=== PATIENT | female | born 1950 | race Asian ===

== ENCOUNTER 2020-05-31 09:56 | Day surgery (SDC) | payer MEDICARE, OTHER ==
[~2020-05-31 09:56] MED LIST: ACETAMINOPHEN 325 MG TABLET PO PRN; CEFAZOLIN 2 GM/D5W RTU 2 GM/50 ML RTUPB IV PRN; CELECOXIB 200 MG CAPSULE PO PRN; FENTANYL CITRATE INJ/PF 100 MCG/2 ML AMPUL ONE; GABAPENTIN 100 MG CAPSULE PO PRN; MIDAZOLAM 2 MG/2 ML INJ ONE; ONDANSETRON HCL INJ/PF 4 MG/2 ML SDV IV PRN; OXYCODONE HCL SR 10 MG TABLET PO PRN; PROPOFOL INJ 200 MG/20 ML VIAL IV ONE; SCOPOLAMINE HYDROBROMIDE 1.5 MG PATCH.TD72 TD PRN; TRAMADOL HCL 50 MG TABLET PO PRN; TRANEXAMIC ACID INJ/PF 1,000 MG/10 ML SDV IV PRN; TRANEXAMIC ACID INJ/PF 1,000 MG/10 ML SDV ONE; VANCOMYCIN HCL 1,000 MG in DEXTROSE 5%-WATER 250 ML IV PRN
[2020-05-31] MEDS ORDERED: SCOPOLAMINE HYDROBROMIDE 1.5 MG PATCH.TD72 ONE (10:34)
[2020-05-31] MEDS ORDERED: OXYCODONE HCL SR 10 MG TABLET PO ONE (10:34)
[2020-05-31] MEDS ORDERED: CELECOXIB 200 MG CAPSULE ONE (10:34)
[2020-05-31] MEDS ORDERED: CEFAZOLIN 2 GM/D5W RTU 2 GM/50 ML RTUPB IV ONE (10:34)
[2020-05-31] MEDS ORDERED: ACETAMINOPHEN 325 MG TABLET ONE (10:34)
[2020-05-31] MEDS ORDERED: TRAMADOL HCL 50 MG TABLET ONE (10:34)
[2020-05-31] MEDS ORDERED: GABAPENTIN 100 MG CAPSULE ONE (10:35)
[2020-05-31 11:17] LABS: HEMATOCRIT 37.4 % (36.0-47.0); HEMOGLOBIN 13.3 g/dL (12.0-15.5); MEAN CORPUSCULAR HGB CONC 35.7 g/dL (32.0-36.0); MEAN CORPUSCULAR VOLUME 95 fl (80-97); PLATELET COUNT 276 10^3/uL (150-450); RED BLOOD COUNT 3.93 10^6/uL (3.72-5.28); RED CELL DISTRIBUTION WIDTH 12.6 % (11.5-14.0)
[2020-05-31 11:38] LABS: ANION GAP 6 (5-19); BLOOD UREA NITROGEN 16 mg/dL (7-20); CALCIUM 9.9 mg/dL (8.4-10.2); CARBON DIOXIDE 25 mmol/L (22-30); CHLORIDE 107 mmol/L (98-107); GLUCOSE 96 mg/dL (75-110); POTASSIUM 4.1 mmol/L (3.6-5.0)
[2020-05-31] MEDS ORDERED: BUPIVACAINE HCL 0.25 % INJ/PF (2.5 MG/1 ML) 30 ML VIAL ONE ×2 (13:12→13:18)
[2020-05-31] MEDS ORDERED: LIDOCAINE 1% INJ-PF (10 MG/ML) 30 ML SDV ONE (13:18)
[2020-05-31] MEDS ORDERED: VANCOMYCIN HCL INJ 1000 MG VIAL ONE (13:18)
[2020-05-31] MEDS ORDERED: KETOROLAC TROMETHAMINE INJ/PF 30 MG/1 ML SDV ONE (13:18)
[2020-05-31] MEDS ORDERED: MEPERIDINE HCL/PF INJ 25 MG/1 ML DISP.SYRIN IV PRN (14:11)
[2020-05-31] MEDS ORDERED: MORPHINE SULFATE 10 MG/ML INJ IV PRN ×2 (14:11→17:30)
[2020-05-31] MEDS ORDERED: ONDANSETRON HCL INJ/PF 4 MG/2 ML SDV IV PRN (14:11)
[2020-05-31] MEDS ORDERED: FENTANYL CITRATE INJ/PF 100 MCG/2 ML AMPUL IV PRN ×3 (14:11)
[2020-05-31] MEDS ORDERED: DIPHENHYDRAMINE HCL 50 MG/ML VIAL IV PRN (14:11)
[2020-05-31] MEDS ORDERED: EPHEDRINE SULFATE INJ 50 MG/1 ML AMPULE ONE (14:40)
--- NOTE | 2020-05-31 15:31 | Operative Report ---
Operative Report DATE OF SURGERY: 05/31/20 PREOPERATIVE DIAGNOSIS: Left hip primary osteoarthritis POSTOPERATIVE DIAGNOSIS: Left hip primary osteoarthritis OPERATION: Left total hip arthroplasty SURGEON: LISANDRO BECKER JR ANESTHESIA: Spinal COMPLICATIONS: None ESTIMATED BLOOD LOSS: 100 cc PROCEDURE: Implants: Noah Accolade 2 size 2 femoral stem with lateral offset, a Logan Trident 2 size 46 mm cup, and a standard liner, a standard neck length 36 mm ceramic head BRIEF HISTORY: 70 year old female with severe degenerative arthritis of left hip, which has failed conservative treatment and has elected for a total hip arthroplasty. Risks include but are not limited to bleeding, infection, anesthesia, , injury to nerve or vessel, pain, scar, leg length inequality, dislocation, future surgery, and blood clots. Patient read through the pre-op counseling form and signed and consented for surgery on their left hip. OPERATIVE PROCEDURE: Patient was brought to the operating room on and underwent spinal anesthesia. 2 grams of Ancef and 1 g of vancomycin was given. After proper anesthesia was obtained, patient was positioned, padded, prepped, and draped in the usual sterile fashion on the operating room table. Appropriate time out was performed. An anterior approach to the hip was undertaken with meticulous hemostasis through the deep interval. A capsulectomy was performed followed by exposure of the femoral neck. The femoral neck was cut in line with the femoral broach and the femoral head was removed. The acetabulum was then exposed with three retractors in an atraumatic fashion. Soft tissue and osteophytes were removed. Medialization reaming was performed followed by anatomic reaming up to accept a 46 mm acetabulum. Wound was irrigated with dilute betadyne solution and the 46 mm acetabulum was impacted into correct position and stability checked by manipulating the impaction handle which rocked the pelvis. A standard liner was impacted into the shell with good stability. Potential impinging osteophytes were removed. Attention was then directed toward the femur, which was exposed with two retract ors in an atraumatic fashion. A bone hook was placed to carefully perform releases along the superior capsule until the femur was safely delivered through the wound. A preparing box tender was utilized followed by lateralization rasping and then broaching up to accept a 2 femur. With a lateral offset neck and a standard head, stability was good in flexion and extension with slightly long on the left (a return to her preoperative baseline) leg lengths. The real lateral offset femur was impacted into a copiously irrigated femoral canal. A 36 mm standard head was impacted on a clean dry femoral taper. The hip was irrigated and reduced, further irrigation with antibiotic solution, betadine solution, then antibiotic solution. Bleeders were coagulated with bovie cautery. The fascia was then closed with number 2 Stratofix; the subcutaneous tissue closed with interrupted inverted 2-0 monocryl then running 3-0 monocryl subcuticular. A silver dressing was then applied. All needle sponge and instrument counts were correct. Patient was awakened from sedation anesthesia and taken to recovery room in good condition. Thank you, Lisandro Becker, DO
--- NOTE | 2020-05-31 16:05 | RADIOLOGY REPORT (SQ) ---
EXAM DESCRIPTION: NO CHG FLUORO; HIP IN OPERATING RM IMAGES COMPLETED DATE/TIME: 05/31/2020 3:26 pm REASON FOR STUDY: LEFT HIP TOTAL ARTHROPLASTY ASSISTED WITH FLUORO IN OR COMPARISON: None. FLUOROSCOPY TIME: No measurable fluoro time 2 Images saved to PACS LIMITATIONS: None. PROCEDURE: Left hip arthroplasty FINDINGS: Images from fluoro document the procedure. IMPRESSION: Left hip arthroplasty. Refer to operative note for further information. COMMENT: PQRS 6045F: Fluoroscopy time of the procedure is documented in the report. TECHNICAL DOCUMENTATION: JOB ID: [id number] 2010 [email or web address]- All Rights Reserved Reading location - IP/workstation name: [email or web address]
--- NOTE | 2020-05-31 16:05 | RADIOLOGY REPORT (SQ) ---
EXAM DESCRIPTION: NO CHG FLUORO; HIP IN OPERATING RM IMAGES COMPLETED DATE/TIME: 05/31/2020 3:26 pm REASON FOR STUDY: LEFT HIP TOTAL ARTHROPLASTY ASSISTED WITH FLUORO IN OR COMPARISON: None. FLUOROSCOPY TIME: No measurable fluoro time 2 Images saved to PACS LIMITATIONS: None. PROCEDURE: Left hip arthroplasty FINDINGS: Images from fluoro document the procedure. IMPRESSION: Left hip arthroplasty. Refer to operative note for further information. COMMENT: PQRS 6045F: Fluoroscopy time of the procedure is documented in the report. TECHNICAL DOCUMENTATION: JOB ID: [id number] 2010 [employer]- All Rights Reserved Reading location - IP/workstation name: [email or web address]
--- NOTE | 2020-05-31 16:14 | RADIOLOGY REPORT (SQ) ---
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 NUMBER OF VIEWS: Two views. TECHNIQUE: AP pelvis and additional frog-leg view of the left hip. LIMITATIONS: None. FINDINGS: MINERALIZATION: Normal. LEFT HIP: Left hip arthroplasty. Good position. RIGHT HIP: No fracture or dislocation. No worrisome bone lesions. PUBIS AND ISCHIUM: No fracture. PELVIS: No fracture. SACRUM: No fracture or dislocation. No worrisome bone lesions. LOWER LUMBAR SPINE: No fracture or dislocation. No worrisome bone lesions. No significant disc disea se. SOFT TISSUES: No findings. OTHER: No other significant finding. IMPRESSION: Left hip arthroplasty. Refer to operative note for further information. TECHNICAL DOCUMENTATION: JOB ID: [id number] 2010 [employer]- All Rights Reserved Reading location - IP/workstation name: [email or web address]
[2020-05-31] MEDS ORDERED: OXYCODONE HCL IR 5 MG TABLET PO PRN ×2 (17:30)
[2020-05-31] MEDS ORDERED: TRAMADOL HCL 50 MG TABLET PO PRN (17:31)
[2020-05-31] MEDS ORDERED: DIPHENHYDRAMINE HCL 25 MG CAPSULE PO PRN (17:33)
[2020-05-31] MEDS ORDERED: ZOLPIDEM TARTRATE 5 MG TABLET PO PRN (17:33)
[2020-05-31] MEDS ORDERED: DOCUSATE SODIUM 100 MG CAPSULE PO PRN (17:34)
[2020-05-31] MEDS ORDERED: ONDANSETRON 4 MG TAB.RAPDIS PO PRN (17:35)
[2020-05-31] MEDS ORDERED: NORMAL SALINE 1000 ML 1,000 ML IV PRN (18:00)
[2020-05-31] MEDS ORDERED: PANTOPRAZOLE SODIUM 20 MG TABLET.DR PO ONE (18:15)
[2020-05-31 19:58] VITALS: BP 120/72
[2020-05-31] MEDS ORDERED: ACETAMINOPHEN 325 MG TABLET PO SCH (22:00)
[2020-05-31] MEDS ORDERED: GABAPENTIN 100 MG CAPSULE PO SCH (22:00)
[2020-05-31] MEDS ORDERED: CEFAZOLIN 2 GM/D5W RTU 2 GM/50 ML RTUPB IV SCH (22:00)
[2020-05-31] MEDS ORDERED: KETOROLAC TROMETHAMINE INJ/PF 30 MG/1 ML SDV IV SCH (22:00)
--- NOTE | 2020-06-01 06:55 | Discharge Summary ---
Discharge Summary (SDC) - Discharge Final Diagnosis: Left total hip arthroplasty Date of Surgery: 05/31/20 Discharge Date: 05/31/20 Condition: Stable Forms: Discharge POC-Adult Treatment or Instructions: Full details of postoperative instructions have been provided to the patient in the clinic. Additionally they should maintain their bandage in place for 5 to 7 days, and then changed to a dry dressing. They can take showers with this occlusive dressing but any further dressing should also be occlusive. No showers with the wound unprotected until cleared by me in the clinic. If the bandage falls off early or become saturated they can change as needed to another occlusive dressing. Referrals: FACUNDO BECKER JR, DO [ACTIVE PROVISIONAL STAFF] - (Please keep your scheduled appointment. Thank you and have a wonderful day.) Discharge Diet: As Tolerated Respiratory Treatments at Home: Deep Breathing/Coughing Discharge Activity: Activity As Tolerated, No Driving, Keep Legs Elevated, No Lifting Over 10 Pounds, Slowly Increase Activity, No tub bath, Walk Frequently Home Care Assistance: None Needed Adaptive Devices on Discharge: Rolling Walker, Bedside Commode Report the Following to Your Physician Immediately: Increase in Pain, Fever over 101 Degrees, Redness, Swelling, Warmth, IV Site Infection Signs
[2020-06-01] MEDS ORDERED: POLYETHYLENE GLYCOL 3350 POWDER 17 GM/1 PACKET PO SCH (10:00)
[2020-06-01] MEDS ORDERED: ASPIRIN 325 MG TABLET PO SCH (10:00)
[2020-06-01] MEDS ORDERED: CELECOXIB 200 MG CAPSULE PO SCH (10:00)
== END 2020-05-31 20:08 | disposition home or self-care (01) ==
LOC: OROUT 09:56 → 4N 16:36 → OROUT 20:08
PROVIDERS: ATTEND Orthopaedic Surgery
DX: M16.12 Unilateral primary osteoarthritis, left hip (principal); Z03.818 Encounter for observation for suspected exposure to other biological agents ruled out; Z79.899 Other long term (current) drug therapy; Z87.891 Personal history of nicotine dependence; Z85.42 Personal history of malignant neoplasm of other parts of uterus
CPT/HCPCS: 86900; 86901; 36415; 86850; 85027; 80048; 73502; 73501; 97110; 97116; 97162; 01214; 27130; U0003; A9270 ×6; J2250; J3490 ×3; J3010; J1885; J7060; J2704; J3370; J0690; C9803; 87635; C1776